=== PATIENT | male | born 2000 | race Caucasian/White ===

== ENCOUNTER 2022-08-21 18:45 | Emergency (ER) | payer OTHER ==
[~2022-08-21] VITALS: Ht 188 cm; Wt 80.7 kg
[2022-08-21 19:02] VITALS: BP 130/77
[2022-08-21] MEDS ORDERED: KETOROLAC 30 MG/ML VIAL IM ONE (19:10)
[2022-08-21] MEDS ORDERED: ACET-8386 PO ×2 (19:16→19:19)
[2022-08-21] MEDS ORDERED: AMOX500C25 PO (19:16)
--- NOTE | 2022-08-21 19:17 | NUR ---
C/O DENTAL PAIN IN THE LEFT MAXILLARY 2ND MOLAR, NOTED IMPACTED MOLAR XTODAY. SCHEDULED APPOINTMENT WITH DENTIST AT 1500 TOMORROW [facility]: DILSHAD
--- NOTE | 2022-08-21 19:31 | NUR ---
Patient discharged with v/s stable. Written and verbal after care instructions ABOUT IMPACTED MOLAR given and explained. Patient alert, oriented and verbalized understanding of instructions. Ambulatory with steady gait. All questions addressed prior to discharge. ID band removed. Patient advised to follow up with PMD. Rx of AMOXICILLIN, NORCO 5-325 given. Patient educated on indication of medication including possible reaction and side effects. Opportunity to ask questions provided and answered.
== END 2022-08-21 19:31 | disposition home or self-care (01) ==
LOC: MED 18:45
DX: K01.1 Impacted teeth (principal)
CPT/HCPCS: 96372; 99283; J1885